=== PATIENT | male | born 1950 | race Caucasian/White ===

== ENCOUNTER 2016-11-14 10:26 | Outpatient (CLI) | payer OTHER | END 2016-11-14 10:27 | disposition home or self-care (01) | DX: R97.20 Elevated prostate specific antigen [PSA] (principal); N40.1 Benign prostatic hyperplasia with lower urinary tract symptoms; Z87.442 Personal history of urinary calculi; R33.9 Retention of urine, unspecified; R35.1 Nocturia; R35.0 Frequency of micturition ==

== ENCOUNTER 2016-11-28 09:06 | Outpatient (CLI) | payer OTHER | END 2016-11-28 09:07 | disposition home or self-care (01) | DX: Z53.9 Procedure and treatment not carried out, unspecified reason (principal) ==

== ENCOUNTER 2017-02-26 15:30 | Outpatient (CLI) | payer OTHER | END 2017-02-26 15:31 | LOC: LAB.S 15:30 | PROVIDERS: ATTEND Nurse Practitioner Family | DX: M10.9 Gout, unspecified (principal) | CPT/HCPCS: 36415; 84550 ==

== ENCOUNTER 2017-03-10 10:35 | Outpatient (CLI) | payer OTHER | END 2017-03-10 10:36 | disposition short-term general hospital (02) | LOC: EMS 10:35 | PROVIDERS: ATTEND Surgery | DX: R51 Headache (principal) | CPT/HCPCS: A0425; A0427 ==

== ENCOUNTER 2017-08-04 07:12 | Outpatient (CLI) | payer OTHER | END 2017-08-04 07:13 | disposition EMS.NT | LOC: EMS 07:12 | PROVIDERS: ATTEND Surgery | DX: R07.9 Chest pain, unspecified (principal) ==

== ENCOUNTER 2017-08-06 14:55 | Outpatient (CLI) | payer OTHER, MEDICARE | END 2017-08-06 14:56 | disposition EMS.NT | LOC: EMS 14:55 | PROVIDERS: ATTEND Surgery | DX: Z76.89 Persons encountering health services in other specified circumstances (principal) ==